=== PATIENT | female | born 1985 | race American Indian/Alaskan Native ===

== ENCOUNTER 2022-01-22 11:18 | Day surgery (SDC) | payer MEDICAID ==
[2022-01-22] MEDS ORDERED: LACTATED RINGERS 1,000 ML IV SCH (11:30)
--- NOTE | 2022-01-22 11:35 | History and Physical Report ---
History of Present Illness Date of examination: 01/22/22 Chief complaint: Missed Past History Past Medical History: no pertinent history Past Surgical History: no surgical history, section Family/Genetic History: none Social history: no significant social history Medications and Allergies Allergies Allergy/AdvReac Type Severity Reaction Status Date / Time No Known Allergies Allergy Verified 01/22/22 11:36 Home Medications Medication Instructions Recorded Confirmed Last Taken Type metroNIDAZOLE [Flagyl] 500 mg PO Q12HR 01/21/22 01/21/22 Unknown History Active Meds: Active Medications Lactated Ringer's (Lactated Ringers) 1,000 mls @ 100 mls/hr IV DIRECT KRISTEN - Physical Exam Breasts: Positive: deferred Cardiovascular: Regular rate Lungs: Positive: Clear to auscultation Abdomen: Positive: normal appearance, soft, normal bowel sounds Genitourinary (Female): Positive: normal external genitalia, normal perenium Vagina: Positive: normal moisture Uterus: Positive: other (Missed ) Extremities: Deep Tendon Reflex Grade: Normal +2 Results All other labs normal. Assessment and Plan N.p.o. on-call to the OR for procedure Informed consent obtained Lukas Jorgensen MD
[2022-01-22] MEDS ORDERED: HYDROmorphone 1 MG/1 ML INJ IV PRN ×2 (12:17)
[2022-01-22] MEDS ORDERED: ONDANSETRON 4 MG/2 ML INJ IV PRN (12:17)
--- NOTE | 2022-01-22 12:18 | Anesthesia Consultation ---
Anesthesia Consult and Med Hx Date of service: 01/22/22 - Airway Anesthetic Teeth Evaluation: Good ROM Head & Neck: Adequate Mental/Hyoid Distance: Adequate Mallampati Class: Class I Intubation Access Assessment: Good - Pre-Operative Health Status ASA Pre-Surgery Classification: ASA1 Proposed Anesthetic Plan: General - Pulmonary Hx Smoking: Yes (STOPPED SMOKING 10/27) Hx Sleep Apnea: No - Central Nervous System Hx Psychiatric Problems: No - Gastrointestinal Hx Gastroesophageal Reflux Disease: No - Hematic Hx Sickle Cell Disease: No - Other Systems Hx Alcohol Use: No Hx Substance Use: No Hx Cancer: No Hx Obesity: No
--- NOTE | 2022-01-22 12:18 | Anesthesia Day of Surgery ---
Anesthesia Day of Surgery - Day of Surgery Patient Examined: Yes Patient H&P Reviewed: Yes Patient is NPO: Yes
--- NOTE | 2022-01-22 12:19 | Operative Report ---
Operative Report Operative Report: Operation performed: 1. Examined under anesthesia 2. Suction dilation & curettage Surgeon: Dr. Teodora Jorgensen Anesthesia: GETA EBL: 200 mL UOP: 150 mL clear IVF: 1 L crystalloid Pathology specimens: Uterine contents Complications: none Disposition and condition: To the PACU in stable condition then discharged home Findings: 1. 10 week size mobile uterus 2. Moderate amount of products of conception Statement of medical necessity: Patient presents with missed for dilation curettage. She desired surgical management. The procedure risk benefits, indications and alternatives reviewed patient. Description of operation: After informed consent, the patient was taken to the OR and placed in Asa stirrups after general anesthesia was administered. An exam under anesthesia was performed with the findings noted above. The vagina was prepped and draped in the usual sterile fashion. Straight catheterization of the bladder was performed. A duckbill speculum was placed to visualize the cervix. A single-tooth tenaculum was placed onto the anterior cervical lip. Serial dilation of the cervix with Crawford dilators was performed. Suction was calibrated to 60 mmHg, and a 10 millimeters curved curette was gently advanced into the uterine cavity fundus. Suction was applied, and the curette was rotated to evacuate the uterus of products of conception. A sharp curettage was performed until a gritty texture was noted. Suction curettage was repeated to clear the remaining products of conception. Minimal bleeding was noted. The tenaculum was removed from the cervix with good hemostasis noted. The speculum was removed. Patient tolerated the procedure well and was taken to recovery room in good condition. Patient's family was notified of her status and uncomplicated intraoperative course at the completion of the procedure. Methergine 0.2mg IMx1 dose given for brisk bleeding during procedure. Excellent hemostasis at the completion of the procedure. All sponge needle and instrument counts were correct x2 Lukas Jorgensen MD
[2022-01-22] MEDS ORDERED: ceFAZolin/Water 2 GM/20 ML 2 GM/20 ML SYRINGE IV ONE (12:35)
[2022-01-22] MEDS ORDERED: MIDAZOLAM 2 MG/2 ML INJ ONE (12:48)
[2022-01-22] MEDS ORDERED: propofoL 200 MG/20 ML VIAL IV ONE (12:48)
[2022-01-22] MEDS ORDERED: ceFAZolin/STERILE WATER 2 GM/20 ML SYRINGE IV NR (13:00)
[2022-01-22] MEDS ORDERED: MIDAZOLAM 2 MG/2 ML INJ IV NR (13:00)
[2022-01-22] MEDS ORDERED: METHYLERGONOVINE MALEATE 0.2 MG/ML VIAL IM ONE (13:09)
[2022-01-22 15:03] VITALS: BP 107/69
== END 2022-01-22 11:19 | disposition home or self-care (01) ==
LOC: OR 11:18
PROVIDERS: ATTEND Obstetrics & Gynecology
DX: O02.1 Missed abortion (principal); Z3A.10 10 weeks gestation of pregnancy; Z87.891 Personal history of nicotine dependence; Z79.899 Other long term (current) drug therapy; Z98.891 History of uterine scar from previous surgery; Z87.440 Personal history of urinary (tract) infections
CPT/HCPCS: 59820; 88305; J0690; J2210; J2250; J2704; J7120; J7502